=== PATIENT | male | born 1955 | race African-American/Black ===

== ENCOUNTER 2016-08-20 19:00 | Inpatient (IN) | payer MEDICARE, MEDICAID ==
[~2016-08-20] VITALS: Ht 165.1 cm; Wt 65.8 kg
[~2016-08-20 19:00] MED LIST: AUGMENTIN 875-1 EAC1 ORAL; FLUCONAZOLE100 MG ORAL; NORCO 5-325 TA1 EACH ORAL; VALTREX1000 MG PO
[2016-08-20] MEDS ORDERED: GENVOYA TABLET1 EACH PO (19:21)
--- NOTE | 2016-08-20 20:59 | Emergency Room Report ---
History of Present Illness General Chief Complaint: Fever Source: Patient Present Illness HPI Patient has a history of HIV. He states that his last T-cell count was 500. He states his last viral load is undetectable. He presents because he is concerned that he may have PCP pneumonia. He states that he had PCP in the past and this feels similar. He states he has had shortness of breath and chest tightness. He has had cough but no sputum production. He is taking his HIV medications as prescribed. He denies abdominal pain. He has no other complaints. Allergies: Coded Allergies: SULFAMETHOXAZOLE (Unverified Allergy, Severe, Hives, 05/27/14) TRIMETHOPRIM (Unverified Allergy, Severe, Hives, 05/27/14) Patient History Past Medical History: see triage record, HTN, HIV, other - HCV Social History: Reports: alcohol use, drug use, smoking Reviewed Nursing Documentation: PMH: Agreed, PSxH: Agreed Nursing Documentation-PMH Hx Hypertension: Yes Review of Systems All Other Systems: negative except mentioned in HPI Physical Exam Vital Signs Date Time Temp Pulse Resp B/P Pulse Ox O2 Delivery O2 Flow Rate FiO2 08/20/16 19:09 97.7 125 16 118/80 97 Room Air Sp02 EP Interpretation: reviewed, normal General Appearance: no apparent distress, alert, GCS 15, non-toxic Head: normocephalic, atraumatic Eyes: bilateral eye PERRL, bilateral eye normal inspection ENT: hearing grossly normal, normal pharynx, no angioedema, normal voice Neck: full range of motion, supple/symm/no masses Respiratory: chest non-tender, lungs clear, normal breath sounds, no respiratory distress, no retraction, no accessory muscle use, speaking full sentences Cardiovascular #1: no edema, tachycardia Gastrointestinal: normal bowel sounds, non tender, soft, non-distended, no guarding, no rebound Rectal: deferred Musculoskeletal: back normal, gait/station normal, normal range of motion, non- tender Neurologic: alert, oriented x3, responsive, motor strength/tone normal, sensory intact, speech normal Psychiatric: judgement/insight normal, memory normal, mood/affect normal, no suicidal/homicidal ideation Skin: normal color, no rash, warm/dry, well hydrated Medical Decision Making Diagnostic Impression: Primary Impression: Pneumonia Additional Impressions: Fever Tachycardia Lactic acid acidosis Sepsis ER Course Patient is immunocompromised at baseline. He presents with shortness of breath and is found to have a multilobar pneumonia. He does have a history of PCP pneumonia, however he is allergic to sulfa medications I cannot give this. I did give meropenem. It is unlikely to be PCP give him the patient has an undetectable viral load and a normal CD4 count per report. Regardless, the patient is also found to have a lactic acidosis which could be medication related. However, the patient was tachycardic and was given aggressive IV fluids broad-spectrum antibiotics and admitted for further evaluation and treatment. This patient is critically ill. This patient required complex medical decision- making, aggressive intervention, extensive laboratory workup and monitoring. Critical care time: 40 minutes. Labs Test 08/20/16 20:53 08/20/16 21:00 White Blood Count 12.1 K/UL (4.8-10.8) Red Blood Count 5.26 M/UL (4.70-6.10) Hemoglobin 15.1 G/DL (14.2-18.0) Hematocrit 48.9 % (42.0-52.0) Mean Corpuscular Volume 93 FL (80-99) Mean Corpuscular Hemoglobin 28.6 PG (27.0-31.0) Mean Corpuscular Hemoglobin Concent 30.8 G/DL (32.0-36.0) Red Cell Distribution Width 13.0 % (11.6-14.8) Platelet Count 154 K/UL (150-450) Mean Platelet Volume 13.7 FL (6.5-10.1) Neutrophils (%) (Auto) 56.9 % (45.0-75.0) Lymphocytes (%) (Auto) 33.0 % (20.0-45.0) Monocytes (%) (Auto) 8.2 % (1.0-10.0) Eosinophils (%) (Auto) 0.1 % (0.0-3.0) Basophils (%) (Auto) 1.8 % (0.0-2.0) Sodium Level 139 mEQ/L (135-145) Potassium Level 4.2 mEQ/L (3.4-4.9) Chloride Level 96 mEQ/L (98-107) Carbon Dioxide Level 19 mEQ/L (20-30) Anion Gap 24 (5-15) Blood Urea Nitrogen 23 mg/dL (7-23) Creatinine 1.6 mg/dL (0.7-1.2) Estimat Glomerular Filtration Rate 54.1 mL/min (>60) Glucose Level 113 mg/dL (74-106) Lactic Acid Level 7.70 mmol/L (0.66-2.22) Calcium Level 9.7 mg/dL (8.6-10.2) Total Bilirubin 1.0 mg/dL (0.0-1.2) Aspartate Amino Transf (AST/SGOT) 328 U/L (5-40) Alanine Aminotransferase (ALT/SGPT) 83 U/L (3-41) Alkaline Phosphatase 83 U/L (40-129) Total Protein 8.8 g/dL (6.6-8.7) Albumin 4.6 g/dL (3.5-5.2) Globulin 4.2 g/dL Albumin/Globulin Ratio 1.0 (1.0-2.7) Urine Color Marni Urine Appearance Clear Urine pH 5 (4.5-8.0) Urine Specific [place] 1.025 (1.005-1.035) Urine Protein 2+ (NEGATIVE) Urine Glucose (UA) Negative (NEGATIVE) Urine Ketones 1+ (NEGATIVE) Urine Occult Blood Negative (NEGATIVE) Urine Nitrite Negative (NEGATIVE) Urine Bilirubin Negative (NEGATIVE) Urine Ictotest Negative Urine Urobilinogen 1 MG/DL (0.0-1.0) Urine Leukocyte Esterase 1+ (NEGATIVE) Urine RBC 2-4 /HPF (0 - 0) Urine WBC 5-10 /HPF (0 - 0) Urine Squamous Epithelial Cells Occasional /LPF Urine Bacteria Few /HPF (NONE) EKG Diagnostic Results Rate: tachycardiac Rhythm: other ST Segments: other Other Impression S.tachycardia w/ NSST Rhythm Strip Diag. Results EP Interpretation: yes Rate: 110's Rhythm: no PVC's, no ectopy Other Impression S.tachycardia Chest X-Ray Diagnostic Results Chest X-Ray Ordered: Yes # of Views/Limited/Complete: 1 View Interpretation: no pneumothorax, other Indication: Shortness of Breath Impression: Other - RLL opacity, LLL opacity Date Electronically Signed: Aug 20, 2016 Time Electronically Signed: 22:20 Last Vital Signs Date Time Temp Pulse Resp B/P Pulse Ox O2 Delivery O2 Flow Rate FiO2 08/20/16 19:09 97.7 125 16 118/80 97 Room Air Disposition: ADMITTED INPATIENT Condition: Critical RAJINDER SALGUERO D.O. Aug 20, 2016 20:58
[2016-08-20 21:18] LABS: BASOPHILS % (AUTO) 1.8 % (0.0-2.0); EOSINOPHILS % (AUTO) 0.1 % (0.0-3.0); MEAN CORPUSCULAR HEMOGLOBIN 28.6 PG (27.0-31.0); MEAN CORPUSCULAR HGB CONC 30.8 G/DL (32.0-36.0); MEAN CORPUSCULAR VOLUME 93 FL (80-99); MEAN PLATELET VOLUME 13.7 FL (6.5-10.1); MONOCYTES % (AUTO) 8.2 % (1.0-10.0); NEUTROPHILS % (AUTO) 56.9 % (45.0-75.0); PLATELET COUNT 154 K/UL (150-450); RED BLOOD COUNT 5.26 M/UL (4.70-6.10); WHITE BLOOD COUNT 12.1 K/UL (4.8-10.8)
[2016-08-20 21:32] LABS: CALCIUM 9.7 mg/dL (8.6-10.2); CREATININE 1.6 mg/dL (0.7-1.2); GLOMERULAR FILTRATION RATE 54.1 mL/min (>60); POTASSIUM 4.2 mEQ/L (3.4-4.9); TOTAL PROTEIN 8.8 g/dL (6.6-8.7)
[2016-08-20 21:37] LABS: REFLEX LACTIC ACID YES OR NO YES
[2016-08-20 21:46] LABS: APPEARANCE,URINE CLEAR; KETONES,URINE 1+ (NEGATIVE); LEUKOCYTE ESTERASE ,URINE 1+ (NEGATIVE); NITRITE,URINE NEGATIVE (NEGATIVE); PH,URINE 5 (4.5-8.0); PROTEIN,URINE 2+ (NEGATIVE); UROBILINOGEN,URINE 1 MG/DL (0.0-1.0)
[2016-08-20 21:53] LABS: ICTOTEST NEGATIVE
[2016-08-20 22:02] LABS: BACTERIA,URINE FEW /HPF; SQUAMOUS EPITHELIAL CELL,UR OCCASIONAL /LPF (NONE/OCC)
[2016-08-20] MEDS ORDERED: Meropenem 1 GM in NS 110 ML IVPB ONE (22:15)
[2016-08-20] MEDS ORDERED: Meropenem 1gm vial ONE (22:22)
[2016-08-20 23:45] VITALS: BP 120/88
[2016-08-21] VITALS (9 sets, daily range): BP systolic 0–140; BP diastolic 0–100
[2016-08-21 01:01] LABS: ABG PCO2 69.9 mmHg (35.0-45.0)
[2016-08-21 01:02] LABS: ABG ALLEN TEST POSITIVE; ABG BASE EXCESS -14.3
[2016-08-21] MEDS ORDERED: Sodium Bicarbonate 50ml Carp ONE ×2 (02:56→03:54)
[2016-08-21] MEDS ORDERED: EPINEPHrine 1mg/10ml Syringe IV ONE (02:56)
[2016-08-21] MEDS ORDERED: Etomidate 40mg/20ml Inj IV ONE (04:04)
[2016-08-21] MEDS ORDERED: NS 550ML IV ONE (04:04)
[2016-08-21] MEDS ORDERED: NS 275ml ONE (04:04)
[2016-08-21] MEDS ORDERED: Succinylcholine 20mg/ml 10ml vial ONE (04:04)
--- NOTE | 2016-08-21 06:45 | Emergency Room Report ---
History of Present Illness General Chief Complaint: Fever Source: Medical Record Present Illness HPI This is a 60-year-old transgender male with a history of HIV. He was admitted to the ICU secondary to respiratory distress from multilobar pneumonia. I was asked to intubate the patient. He had a blood gases showed a pH of 7 and he was placed on BiPAP. He got better for short of the time but continued to worsen. I was called to evaluate the patient for intubation. On my arrival, patient is agitated, on the BiPAP machine. He was tachycardic with stable blood pressure. Because of his agitation and respiratory distress I elected to intubate the patient. Intubation went smoothly in patient tolerated procedure without a problem. I was on my way back to the ER, when a CODE BLUE was called. Per nursing staff his heart rate went from this 70 in the 80s to asystole. CPR was done and patient received epinephrine x3 and also on route of bicarbonate. He got a pulse back. I elected to place a central line in this patient. After the central line, he lost his pulse again and another round of was done. Again he received epinephrine and bicarbonate and had a pulse back. He coded for the third time in this time after several rounds of epinephrine and bicarbonate, he remained in asystole and I called the code announcement at 4:[address] Gonzalez. Allergies: Coded Allergies: SULFAMETHOXAZOLE (Unverified Allergy, Severe, Hives, 05/27/14) TRIMETHOPRIM (Unverified Allergy, Severe, Hives, 05/27/14) Patient History Past Medical History: see triage record, old chart reviewed Past Surgical History: other Pertinent Family History: none Social History: Denies: alcohol use Immunizations: other Reviewed Nursing Documentation: PMH: Agreed, PSxH: Agreed Nursing Documentation-PMH Hx Cardiac Problems: Yes Hx Hypertension: Yes Hx Cancer: No Hx Gastrointestinal Problems: No Hx Neurological Problems: No Review of Systems Respiratory: Reports: shortness of breath All Other Systems: limited - Secondary to his condition Physical Exam Vital Signs Date Time Temp Pulse Resp B/P Pulse Ox O2 Delivery O2 Flow Rate FiO2 08/20/16 19:09 97.7 125 16 118/80 97 Room Air 08/21/16 01:15 100 Sp02 EP Interpretation: abnormal General Appearance: severe distress Eyes: bilateral eye EOMI ENT: other - BiPAP Neck: full range of motion Respiratory: respiratory distress, decreased breath sounds, accessory muscle use, rales, rhonchi, other - Breast augmentation Cardiovascular #1: tachycardia Gastrointestinal: normal bowel sounds, non tender Musculoskeletal: normal inspection Neurologic: grossly normal Skin: normal inspection Procedures Critical Care Time Critical Care Time Critical care is mandated in this patient who presented with respiratory failure. Patient require my urgent intervention to attenuate the risks of metabolic collapse which may lead to cardiovascular collapse and . Critical care time is 35 minutes excluding any reportable procedure. Critical care time included evaluation, multiple reevaluation, looking at old charts, interpreting laboratory and diagnostic data, discussing case with patient and family and consultants, and charting. Central Line Central Line : Consent: Emergent Central Line Lumen: triple Maximal Sterile Barrier Tech: yes cap, yes mask, yes sterile gown, yes sterile gloves, yes large sterile sheet, yes hand hygiene, yes chlorhexidine prep Central Line Postion: femoral (R) Complications: none Central Line Post Position: sutured, good blood return Attempts: One Patient Tolerated: Well Complications: None CPR/Code Blue CPR/Code Blue Narrative please see code sheet for full information. Patient had CODE BLUE x3. First 2 times were able to get return of spontaneous rhythm. third time, he remained in asystole and the code was called 405 AM. Medical Decision Making Diagnostic Impression: Primary Impression: Sepsis Qualified Codes: A41.9 - Sepsis, unspecified organism Additional Impressions: Respiratory failure requiring intubation ARDS (adult respiratory distress syndrome) Cardiac arrest ER Course Patient was admitted for sepsis secondary to pneumonia. He developed respiratory failure requiring intubation and subsequently coded. Chest x-ray showed ARDS pattern. Unfortunately, he did not survive. Chest X-Ray Diagnostic Results Chest X-Ray Ordered: Yes # of Views/Limited/Complete: 1 View Interpretation: other - Bilateral infiltrates diffusely. No pneumothorax. Endotracheal tube in good position. Indication: Shortness of Breath Impression: Other - ARDS. Endotracheal tube in good position. Multilobar infiltrates Date Electronically Signed: Aug 21, 2016 Time Electronically Signed: 06:45 Interpreting ER Physician: Flynn Linares MD Last Vital Signs Date Time Temp Pulse Resp B/P Pulse Ox O2 Delivery O2 Flow Rate FiO2 08/21/16 04:05 0 0/0 0 Mechanical Ventilator 08/21/16 03:26 58 08/21/16 03:13 100 08/21/16 01:00 98.0 Disposition: Condition: Referrals: DAHIANA VASQUEZ (PCP) FLYNN LINARES M.D. Aug 21, 2016 06:45
--- NOTE | 2016-08-21 08:43 | History & Physical ---
History and Physical History & Physicial Pt was admitted early this morning to telemetry with Dx of Pneumonia. On arrival to telemetry, pt was desaturating. He was transferred to ICU and started on BIPAP and later on he got intubated by ER physician. Pt had code blue and resuscitated a few times. He was pronounce by ER physician this morning when last Code Blue was unsuccessful. LINNETTE MEADOWS Aug 21, 2016 08:43
--- NOTE | 2016-08-21 11:03 | Diagnostic Imaging Report ---
Indication: Status post intubation Technique: One view of the chest Comparison: 08/20/2016 Findings: Interim endotracheal intubation, endotracheal tube tip in good position approximately 3 cm above the darling. There is considerably increased bilateral pulmonary airspace and interstitial disease bilaterally. The heart is borderline enlarged Impression: Satisfactory endotracheal intubation Worsening bilateral pulmonary infiltrates versus edema
--- NOTE | 2016-08-21 13:01 | Diagnostic Imaging Report ---
Indication: SOB Technique: One view of the chest Comparison: none Findings: There are bilateral small pleural effusions. The both lung bases, left greater than right. The heart size is upper limits of normal Impression: Bilateral basilar infiltrates versus edema and small bilateral pleural effusions
--- NOTE | 2016-08-21 14:59 | Cardiology Report ---
APPROVED REPORT EKG Measurement Heart [id number] Sinus tachycardia with occasional premature ventricular complexes Possible Left atrial enlargement Abnormal ECG
--- NOTE | 2016-08-23 08:41 | Discharge Summary ---
Discharge Summary Hospital Course Date of Admission Aug 20, 2016 at 21:57 Date of Discharge Aug 21, 2016 at 04:05 Admitting Diagnosis Pneumonia, Tachycardia HPI Ambrosio Boogie is a 60 year old male who was admitted on Aug 20, 2016 at 21: 57 for Pneumonia,Tachycardia Hospital Course [id number] Discharge Discharge Disposition Patient Discharge Diagnoses: Cassidy Slaughter NP Aug 23, 2016 08:41
--- NOTE | 2016-08-24 01:15 | Discharge Summary 2 SIG ---
DATE OF ADMISSION: 08/20/2016 DATE OF DISCHARGE: 08/21/2016 BRIEF SUMMARY: The patient is an unfortunate 60-year-old transgender male with history of HIV, presented to ED for fever, shortness of breath, and chest tightness. He had a history of PCP pneumonia and has been having a cough. On evaluation at ED, he was found to have multilobar pneumonia and was found to have lactic acidosis and was tachycardic. He was admitted to telemetry, but the patient kept on desaturating and was transferred to ICU and was started on BiPAP. He continued to decline , Code Blue was called and was orally intubated by ER physician. He coded several times,, resuscitative efforts failed and the patient . FINAL DIAGNOSES: 1. Acute respiratory failure secondary to pneumonia. 2. Human immunodeficiency virus. 3. Sepsis with lactic acidosis. Saen Gonzalez M.D. I have been assigned to dictate discharge summary on this account and I was not involved in the patient's management. Cassidy Slaughter N.P. DR: ACACIA JOB#: [id number] CC: [place]
== END 2016-08-21 04:05 | disposition expired | DRG 974 ==
LOC: EMR 19:59 → 2E 21:57 → EDBEDREQ 22:15 → 2E 23:06 → ICU 08-21 00:51
PROC: 0BH17EZ Insertion of Endotracheal Airway into Trachea, Via Natural or Artificial Opening (ICD-10-PCS; principal; 2016-08-21)
PROC: 06HM33Z Insertion of Infusion Device into Right Femoral Vein, Percutaneous Approach (ICD-10-PCS; principal; 2016-08-21)
PROC: 5A12012 Performance of Cardiac Output, Single, Manual (ICD-10-PCS; principal; 2016-08-21)
PROC: 5A1935Z Respiratory Ventilation, Less than 24 Consecutive Hours (ICD-10-PCS; principal; 2016-08-21)
PROC: 5A09357 Assistance with Respiratory Ventilation, Less than 24 Consecutive Hours, Continuous Positive Airway Pressure (ICD-10-PCS; principal; 2016-08-21)
DX: A41.9 Sepsis, unspecified organism (principal); B20 Human immunodeficiency virus [HIV] disease; J96.00 Acute respiratory failure, unspecified whether with hypoxia or hypercapnia; J18.9 Pneumonia, unspecified organism; Z88.2 Allergy status to sulfonamides; Z88.8 Allergy status to other drugs, medicaments and biological substances; I10 Essential (primary) hypertension
CPT/HCPCS: 36415; 36600; 71010; 80053; 81003; 82962; 83605; 85025; 87040; 92950; 93005; 94002; J0171